=== PATIENT | female | born 1975 | race American Indian/Alaskan Native ===

== ENCOUNTER 2021-12-14 23:18 | Emergency (ER) | payer SELFPAY ==
[2021-12-15] MEDS ORDERED: METOPROLOL TARTRATE 50 MG TAB PO ONE (02:29)
--- NOTE | 2021-12-15 02:30 | Emergency Department Report ---
ED General Adult HPI - General Chief complaint: Chest Pain Stated complaint: I ran out of my medications and my heart is racing Time Seen by Provider: 12/15/21 02:28 Source: patient, RN notes reviewed Mode of arrival: Ambulatory Limitations: No Limitations - History of Present Illness Initial comments: The patient was evaluated in the emergency department for symptoms described in the history of present illness. He/she was evaluated in the context of the global COVID-19 pandemic, which necessitated consideration that the patient might be at risk for infection with the virus that causes COVID-19. Institutional protocols and algorithms that pertain to the evaluation of patients at risk for COVID-19 are in a state of rapid change based on informa tion released by regulatory bodies including the CDC and federal and state organizations. These policies and algorithms were followed during the patient's care in the emergency department. Please note that these policies, procedures and recommendations changed on a rapid basis. This is a 46-year-old female, who recently relocated from [place]. Past medical history includes body mass index of 50, anemia, supposed to be on iron, diabetes, supposed to be on metformin, glipizide, and insulin, sleep apnea, not currently on CPAP, hypertension and allergies, recently ran out of losartan, amlodipine and metoprolol. The patient presents to the department today with complaints of at the moment p ainless shortness of breath and heart racing. She denies travel, surgery, immobilization DVT and pulmonary embolism risk factors. She endorses right arm pain over the weekend which is now resolved. She reports that she helped a family member with a move up 4 flights of stairs. No hematemesis. No bright red blood per rectum. No current vaginal bleeding. She does endorse current heavy menstruation. She is not COVID-19 vaccinated. She had COVID previously. No loss of taste or smell. -: days(s) Consistency: constant Improves with: rest Worsens with: movement - Related Data Home Medications Medication Instructions Recorded Confirmed Last Taken Ferrous Sulfate [Feosol] 325 mg PO TID 12/15/21 12/15/21 Unknown Insulin Glargine,Hum.rec.anlog 100 unit SQ PRN 12/15/21 Unknown [Lantus Solostar] Previous Rx's Medication Instructions Recorded Last Taken Type Albuterol Sulfate [Proair 90 mcg IH PRN #1 inh 12/15/21 Unknown Rx Respiclick] Ferrous Sulfate [Feosol 325 MG tab] 325 mg PO BID #60 tablet 12/15/21 Unknown Rx Fluticasone (Nf) [Flovent 44 2 puff IH BID #1 inh 12/15/21 Unknown Rx MCG/PUFF HFA] Furosemide [Lasix] 40 mg PO BID #60 tab 12/15/21 Unknown Rx Losartan [Cozaar] 100 mg PO QDAY #30 tab 12/15/21 Unknown Rx Metformin HCl [metFORMIN] 1,000 mg PO BID #60 tab 12/15/21 Unknown Rx Metoprolol [Lopressor TAB] 25 mg PO BID #60 tab 12/15/21 Unknown Rx Montelukast [Singulair] 10 mg PO DAILY #30 tab 12/15/21 Unknown Rx amLODIPine 2.5 mg PO DAILY #30 tab 12/15/21 Unknown Rx glipiZIDE [Glucotrol] 10 mg PO QDAY #30 tab 12/15/21 Unknown Rx Allergies Allergy/AdvReac Type Severity Reaction Status Date / Time No Known Allergies Allergy Verified 12/14/21 23:27 ED Review of Systems ROS: Stated complaint: CHF RAPID HEART BEAT Other details as noted in HPI Constitutional: denies: fever Eyes: denies: eye discharge ENT: denies: hearing loss Respiratory: shortness of breath. denies: wheezing Cardiovascular: palpitations. denies: chest pain Gastrointestinal: denies: abdominal pain, nausea, vomiting, hematemesis, melena, hematochezia Genitourinary: denies: dysuria Musculoskeletal: arthralgia Neurological: denies: weakness Hematological/Lymphatic: denies: easy bleeding ED Past Medical Hx - Medications Home Medications: Home Medications Medication Instructions Recorded Confirmed Last Taken Type Albuterol Sulfate [Proair 90 mcg IH PRN #1 inh 12/15/21 Unknown Rx Respiclick] Ferrous Sulfate [Feosol 325 MG tab] 325 mg PO BID #60 tablet 12/15/21 Unknown Rx Ferrous Sulfate [Feosol] 325 mg PO TID 12/15/21 12/15/21 Unknown History Fluticasone (Nf) [Flovent 44 2 puff IH BID #1 inh 12/15/21 Unknown Rx MCG/PUFF HFA] Furosemide [Lasix] 40 mg PO BID #60 tab 12/15/21 Unknown Rx Insulin Glargine,Hum.rec.anlog 100 unit SQ PRN 12/15/21 Unknown History [Lantus Solostar] Losartan [Cozaar] 100 mg PO QDAY #30 tab 12/15/21 Unknown Rx Metformin HCl [metFORMIN] 1,000 mg PO BID #60 tab 12/15/21 Unknown Rx Metoprolol [Lopressor TAB] 25 mg PO BID #60 tab 12/15/21 Unknown Rx Montelukast [Singulair] 10 mg PO DAILY #30 tab 12/15/21 Unknown Rx amLODIPine 2.5 mg PO DAILY #30 tab 12/15/21 Unknown Rx glipiZIDE [Glucotrol] 10 mg PO QDAY #30 tab 12/15/21 Unknown Rx ED Physical Exam - General Limitations: No Limitations General appearance: alert, in no apparent distress, obese - Head Head exam: Present: atraumatic, normocephalic - Eye Eye exam: Present: normal appearance, EOMI. Absent: nystagmus - ENT ENT exam: Present: normal exam, normal orophraynx, mucous membranes moist, normal external ear exam - Neck Neck exam: Present: normal inspection, full ROM. Absent: tenderness, meningismus - Respiratory Respiratory exam: Present: decreased breath sounds. Absent: respiratory distress, wheezes, rales, rhonchi, stridor - Cardiovascular Cardiovascular Exam: Present: normal rhythm, tachycardia, normal heart sounds. Absent: bradycardia, irregular rhythm, systolic murmur, diastolic murmur, rubs, gallop - GI/Abdominal GI/Abdominal exam: Present: soft. Absent: distended, tenderness, guarding, rebound, rigid, pulsatile mass - Extremities Exam Extremities exam: Present: normal inspection, full ROM, pedal edema (1+ edema in the bilateral lower extremity), other (2+ pulses noted in the bilateral upper and lower extremities. There is no palpable cord. negative Homans sign. Muscular compartments are soft. The pelvis is stable.). Absent: calf tenderness - Back Exam Back exam: Present: normal inspection. Absent: tenderness, CVA tenderness (R), CVA tenderness (L), paraspinal tenderness, vertebral tenderness - Neurological Exam Neurological exam: Present: alert, oriented X3, normal gait, other (No facial droop. Tongue midline. Extraocular movements intact bilaterally. Facial sensation intact to light touch in V1, V2, V3 distribution bilaterally. 5 and a 5 strength in 4 extremities. Sensation intact to light touch in 4 e xtremities.). Absent: motor sensory deficit - Psychiatric Psychiatric exam: Present: normal affect, normal mood - Skin Skin exam: Present: warm, dry, intact, normal color. Absent: rash ED Course Vital Signs 12/14/21 12/15/21 12/15/21 23:26 02:36 02:41 Temperature 98.9 F 98.8 F Pulse Rate 131 H 108 H 111 H Respiratory 18 18 Rate Blood Pressure 170/91 212/103 Blood Pressure 212/103 [Right] O2 Sat by Pulse 99 98 Oximetry 12/15/21 12/15/21 03:25 03:31 Temperature Pulse Rate 115 H 102 H Respiratory 24 Rate Blood Pressure 145/73 Blood Pressure 175/103 [Right] O2 Sat by Pulse 98 Oximetry - Reevaluation(s) Reevaluation #1: 12/15/21 04:28 Differential diagnosis, including but not limited to: Morbid obesity, deconditioning, hyperglycemia, obstructive sleep apnea, medication refill, anxiety, hypertension, microcytic anemia, pulmonary hypertension Assessment and plan: 46-year-old female with improving tachycardia. Heart rate currently 102 bpm. The patient denies DVT and pulmonary embolism risk factors, and she is low risk by Wells criteria for pulmonary embolism. She has recently relocated from [place], and has ran out of a number of her medications. Microcytic anemia is chronic, and she reports that she is supposed to be on iron. She is noncompliant with CPAP and is morbidly obese, and is likely physically deconditioned. She is found to have hyperglycemia, and has ran out of her diabetic medications. She does not have an anion gap acidosis. Nonspecific transaminitis likely secondary to fatty liver, likely secondary to poorly maintained diabetes. Troponin negative x1, in the context of days of symptoms. Acute myocardial infarction is ruled out. Patient denies hematemesis and bright red blood per rectum. Extensive discussion had with patient regarding diet and lifestyle modifications. We can refill her medications. She will need to follow-up with outpatient [facility] for microcytic anemia and history of heavy menstruation. She will need to follow-up with outpatient pulmonary for reinitiation of CPAP for her obstructive sleep apnea. She will need to follow-up with primary care for chronic medical conditions and medical maintenance. The patient is observed in this department for hours without clinical decompensation TSH and free T4 appreciated. She will need to follow-up with outpatient primary care and/or endocrinology for further evaluation and management. 12/15/21 04:35 12/15/21 05:25 Care will be transferred to the oncoming ER physician, Dr Mark Green, to follow-up on repeat Accu-Chek, and discharge when less than 300. 12/15/21 05:59 ED Medical Decision Making - Lab Data Result diagrams: 12/15/21 04:00 12/15/21 03:09 Vital Signs 12/14/21 12/15/21 12/15/21 23:26 02:36 02:41 Temperature 98.9 F 98.8 F Pulse Rate 131 H 108 H 111 H Respiratory 18 18 Rate Blood Pressure 170/91 212/103 Blood Pressure 212/103 [Right] O2 Sat by Pulse 99 98 Oximetry 12/15/21 12/15/21 03:25 03:31 Temperature Pulse Rate 115 H 102 H Respiratory 24 Rate Blood Pressure 145/73 Blood Pressure 175/103 [Right] O2 Sat by Pulse 98 Oximetry Lab Results 12/15/21 12/15/21 12/15/21 Range/Units 03:09 03:09 03:09 WBC (4.5-11.0) K/mm3 RBC (3.65-5.03) M/mm3 Hgb 9.0 L (10.1-14.3) gm/dl Hct 28.7 L (30.3-42.9) % MCV (79-97) fl MCH (28-32) pg MCHC (30-34) % RDW (13.2-15.2) % Plt Count 425 (140-440) K/mm3 PT 13.5 (12.2-14.9) Sec. INR 0.93 (0.87-1.13) Sodium 133 L (137-145) mmol/L Potassium 4.1 (3.6-5.0) mmol/L Chloride 97.7 L (98-107) mmol/L Carbon Dioxide 25 (22-30) mmol/L Anion Gap 14 mmol/L BUN 11 (7-17) mg/dL Creatinine 0.5 L (0.6-1.2) mg/dL Estimated GFR > 60 ml/min BUN/Creatinine Ratio 22 % Glucose 455 H (65-100) mg/dL Calcium 8.9 (8.4-10.2) mg/dL Magnesium 1.70 (1.7-2.3) mg/dL Total Bilirubin 0.30 (0.1-1.2) mg/dL AST 66 H (5-40) units/L ALT 85 H (7-56) units/L Alkaline Phosphatase 112 (35-129) units/L Total Creatine Kinase 48 (30-135) units/L Total Protein 7.2 (6.3-8.2) g/dL Albumin 3.7 L (3.9-5) g/dL Albumin/Globulin Ratio 1.1 % TSH (0.270-4.200) mlU/mL HCG, Quant (0-4) mIU/mL 12/15/21 12/15/21 12/15/21 Range/Units 03:09 03:09 04:00 WBC 7.1 (4.5-11.0) K/mm3 RBC 3.80 (3.65-5.03) M/mm3 Hgb 8.9 L (10.1-14.3) gm/dl Hct 28.5 L (30.3-42.9) % MCV 75 L (79-97) fl MCH 24 L (28-32) pg MCHC 31 (30-34) % RDW 15.8 H (13.2-15.2) % Plt Count 426 (140-440) K/mm3 PT (12.2-14.9) Sec. INR (0.87-1.13) Sodium (137-145) mmol/L Potassium (3.6-5.0) mmol/L Chloride (98-107) mmol/L Carbon Dioxide (22-30) mmol/L Anion Gap mmol/L BUN (7-17) mg/dL Creatinine (0.6-1.2) mg/dL Estimated GFR ml/min BUN/Creatinine Ratio % Glucose (65-100) mg/dL Calcium (8.4-10.2) mg/dL Magnesium (1.7-2.3) mg/dL Total Bilirubin (0.1-1.2) mg/dL AST (5-40) units/L ALT (7-56) units/L Alkaline Phosphatase (35-129) units/L Total Creatine Kinase (30-135) units/L Total Protein (6.3-8.2) g/dL Albumin (3.9-5) g/dL Albumin/Globulin Ratio % TSH 0.174 L (0.270-4.200) mlU/mL HCG, Quant < 2 (0-4) mIU/mL - EKG Data -: EKG Interpreted by Me EKG shows normal: sinus rhythm Rate: tachycardia - EKG Data When compared to previous EKG there are: previous EKG unavailable 12/15/21 04:33 The EKG is interpreted at 23: 30 Sinus tachycardia, rate 129 bpm. Normal axis, normal P wave axis, high left ventricular voltage, QTC 5 1 5 ms. This is an abnormal EKG. There is motion artifact. This is not a STEMI. - Radiology Data Radiology results: pending, report reviewed, image reviewed CHEST 2 VIEWS INDICATION / CLINICAL INFORMATION: Right arm pain, shortness of breath. COMPARISON: None available. FINDINGS: SUPPORT DEVICES: None. HEART / MEDIASTINUM: No significant abnormality. LUNGS / PLEURA: Mild increased pulmonary vascularity No pneumothorax. Signer Name: Rick Mcgee MD Signed: 12/15/2021 3:37 AM Workstation Name: [id number] Critical care attestation.: If time is entered above; I have spent that time in minutes in the direct care of this critically ill patient, excluding procedure time. ED Disposition Clinical Impression: Hyperglycemia, Microcytic anemia, Body mass index (BMI) of 50-59.9 in adult, Obstructive sleep apnea, Hypertension, Medication refill, Shortness of breath Is pt being admited?: No Does the pt Need Aspirin: No Condition: Good Instructions: Hypertension (ED) Additional Instructions: We recommend that the patient exercise aggressively as tolerated, and attempt to lose weight. Recommend that the patient keep a "green and lean", and avoid consumption of alcohol, tobacco, smoke products, heavy and spicy foods, and excessive carbohydrates. Patient may reference the [place] [employer] website for appropriate dietary instructions and assistance. Please follow-up with a primary care doctor such as Dr. Cady Hendrickson, For your chronic hypertension, and diabetes. Please follow-up with an [facility] doctor, such as my [facility], for microcytic anemia, and heavy menstruation. Please follow-up with the cnc specialist, such as Dr. Breonna Justin, For your obstructive sleep apnea. Noncompliance with antihypertensive medications, diabetic medications, and nonadherence to appropriate diet and lifestyle may cause worsening diabetes and hypertension, as well as obesity, all of which are risk factors for heart disease, stroke, disability, paralysis, and loss of quality of life. Recommend follow-up with the aforementioned physicians within the next month. Please return to the emergency room right away with new pain, worsened pain, migration of pain, projectile vomiting, change in mental status, confusion, inability tolerate liquid feeds, new, worsened or different symptoms not present on the initial emergency room evaluation Please have your outpatient primary care doctor and/or endocrinology/specialists contact medical records department, to obtain copies of laboratory studies and radiology studies, to follow-up on nonemergent incidental abnormal findings. Prescriptions: amLODIPine 2.5 mg PO DAILY #30 tab Losartan [Cozaar] 100 mg PO QDAY #30 tab Ferrous Sulfate [Feosol 325 MG tab] 325 mg PO BID #60 tablet Fluticasone (Nf) [Flovent 44 MCG/PUFF HFA] 2 puff IH BID #1 inh glipiZIDE [Glucotrol] 10 mg PO QDAY #30 tab Furosemide [Lasix] 40 mg PO BID #60 tab Metoprolol [Lopressor TAB] 25 mg PO BID #60 tab Metformin HCl [metFORMIN] 1,000 mg PO BID #60 tab Albuterol Sulfate [Proair Respiclick] 90 mcg IH PRN #1 inh Montelukast [Singulair] 10 mg PO DAILY #30 tab Referrals: RICHA HENDRICKSON MD [Staff Physician] - 3-5 Days MILENA JUSTIN MD [Staff Physician] - 3-5 Days [facility] [Provider Group] - 3-5 Days Forms: Work/School Release Form(ED)
[2021-12-15] MEDS ORDERED: amLODIPine 5 MG TAB PO ONE (03:16)
[2021-12-15] MEDS ORDERED: MONTELUKAST 10 MG TAB PO STA (03:16)
[2021-12-15] MEDS ORDERED: LOSARTAN 50 MG TAB PO STA (03:16)
[2021-12-15 03:23] LABS: Hematocrit 28.7 % (30.3-42.9)
[2021-12-15 03:32] LABS: INR 0.93 (0.87-1.13)
[2021-12-15 03:41] LABS: Alanine Aminotransferase 85 units/L (7-56); Albumin 3.7 g/dL (3.9-5); Blood Urea Nitrogen 11 mg/dL (7-17); Calcium 8.9 mg/dL (8.4-10.2); Hemolysis Index 1
[2021-12-15 04:09] LABS: BUN/Creatinine Ratio 22
[2021-12-15 04:15] LABS: Hematocrit 28.5 % (30.3-42.9); Hemoglobin 8.9 gm/dl (10.1-14.3); Mean Corpuscular HGB Conc 31 % (30-34); Mean Corpuscular Volume 75 fl (79-97); Platelet Count 426 K/mm3 (140-440); Red Cell Distribution Width 15.8 % (13.2-15.2)
[2021-12-15] MEDS ORDERED: SODIUM CHLORIDE 0.9% 500 ML 500 ML IV ONE ×2 (04:19→06:41)
[2021-12-15] MEDS ORDERED: INSULIN REGULAR, HUMAN 100 UNITS/1 ML IV ONE ×2 (04:19→06:40)
[2021-12-15] MEDS ORDERED: INSULIN REGULAR, HUMAN 100 UNITS/1 ML SUB-Q ONE (04:23)
--- NOTE | 2021-12-15 04:42 | XRay Report ---
CHEST 2 VIEWS INDICATION / CLINICAL INFORMATION: Right arm pain, shortness of breath. COMPARISON: None available. FINDINGS: SUPPORT DEVICES: None. HEART / MEDIASTINUM: No significant abnormality. LUNGS / PLEURA: Mild increased pulmonary vascularity No pneumothorax. Signer Name: Rick Mcgee MD Signed: 12/15/2021 4:37 AM Workstation Name: [id number]
[2021-12-15] MEDS ORDERED: FUROSEMIDE 20 MG TAB PO ONE (04:50)
[2021-12-15 08:44] VITALS: BP 189/123
--- NOTE | 2021-12-15 22:41 | Electrocardiograph Report ---
[facility] Test Date: 2021-12-14 Test Time: 23:29:58 Pat Name: RENAY RODRIGUES Department: Room: Gender: F Rejector: RADHA : 1975 Requested By: ROLF KAT Order Number: [id number] Reading MD: Anne Marie Foley Measurements Intervals [place] Rate: 129 P: 91 CT: 140 QRS: 15 QRSD: 90 T: 231 QT: 352 QTc: 515 Interpretive Statements Sinus tachycardia Left atrial enlargement Probable LVH with secondary repol abnrm Prolonged QT interval No previous ECG available for comparison Electronically Signed On 12-15-2021 22:40:52 EDT by Anne Marie Foley
== END 2021-12-15 08:45 | disposition home or self-care (01) ==
LOC: ED 23:18
DX: R73.9 Hyperglycemia, unspecified (principal); D50.9 Iron deficiency anemia, unspecified; Z68.43 Body mass index [BMI] 50.0-59.9, adult; G47.33 Obstructive sleep apnea (adult) (pediatric); I10 Essential (primary) hypertension; R06.02 Shortness of breath; Z76.0 Encounter for issue of repeat prescription
CPT/HCPCS: 36415; 71045; 80053; 82550; 83735; 84439; 84443; 84484; 84702; 85014; 85018; 85027; 85049; 85610; 93005; 96372; 96374; 99284; Q9967; J1815